=== PATIENT | female | born 1990 | race African-American/Black ===

== ENCOUNTER 2020-07-24 06:39 | Emergency (ER) | payer BC ==
[~2020-07-24] VITALS: Ht 162.6 cm; Wt 64.0 kg
[2020-07-24 06:51] VITALS: BP 135/77
[2020-07-24 08:23] LABS: CLARITY URINE CLEAR (CLEAR); COLOR URINE YELLOW (YELLOW); KETONES URINE NEGATIVE (NEGATIVE); LEUKOCYTE ESTERASE URINE NEGATIVE (NEGATIVE); NITRITE URINE NEGATIVE (NEGATIVE); OCCULT BLOOD URINE TRACE (NEGATIVE); PH URINE 5.5 (4.5-8.0); PROTEIN URINE NEGATIVE (NEGATIVE); SPECIFIC GRAVITY URINE 1.025 (1.005-1.030); UROBILINOGEN URINE 0.2 E.U./dL (0.2-1.0)
[2020-07-24 08:53] LABS: BASOPHILS % 0.7 % (0.0-2.0); EOSINOPHILS % 0.4 % (0.0-5.0); HEMATOCRIT. 42.9 % (36.0-48.0); HEMOGLOBIN. 14.2 g/dL (12.0-16.0); LYMPHOCYTES % 34.1 % (20.0-50.0); MEAN CORPUSCULAR HEMOGLOBIN 29.9 pg (28.0-32.0); MEAN CORPUSCULAR VOLUME 90.3 fL (81.0-99.0); MEAN PLATELET VOLUME 8.8 fl (7.4-10.4); MONOCYTES % 8.3 % (2.0-8.0); NEUTROPHILS % 56.5 % (40.0-76.0); PLATELET 196 x1000/uL (130-400); RED BLOOD CELL COUNT 4.75 mill/uL (4.2-5.4); RED CELL DISTRIBUTION WIDTH 13.7 % (11.6-14.6)
[2020-07-24 09:01] LABS: INR 1.1; PROTHROMBIN TIME 11.2 sec (9.6-11.0)
[2020-07-24 09:04] LABS: CHLORIDE 106 mEq/L (98-107)
[2020-07-24] MEDS ORDERED: CEFTRIAXONE SODIUM 500 MG/VIAL IM ONE (09:30)
[2020-07-24] MEDS ORDERED: HYDROCODONE/ACETAMINOPHEN 5/325MG TABLET PO ONE (10:00)
[2020-07-24] MEDS ORDERED: METRONIDAZOLE 500MG TABLET PO ONE (10:30)
[2020-07-26 17:07] LABS: NEISSERIA GONORRHOEAE NAA Negative (Negative)
== END 2020-07-24 11:54 | disposition home or self-care (01) ==
LOC: ER 06:39
DX: Z20.2 Contact with and (suspected) exposure to infections with a predominantly sexual mode of transmission (principal); I10 Essential (primary) hypertension
CPT/HCPCS: 36415; 76830; 76856; 80053; 81003; 81025; 83690; 85025; 85610; 87210; 87491; 87591; 96372; 99284; J0696; Z7610